=== PATIENT | male | born 1970 | race Caucasian/White ===

== ENCOUNTER 2024-10-07 12:43 | Day surgery (SDC) | payer OTHER, SELFPAY ==
[2024-10-07] VITALS (8 sets, daily range): BP systolic 109–131; BP diastolic 73–98; BMI 31.6
[2024-10-07 15:13] LABS: ACT-LR - POC 258 Seconds (116-155)
[2024-10-07 16:25] LABS: ACT-LR - POC 226 Seconds (116-155)
--- NOTE | 2024-10-07 16:45 | CM ---
Chart reviewed. Patient is independent of ADLS, lives with his in a [address], 1 [facility], 0 DME. Plan is for the patient to return home. CM to follow
--- NOTE | 2024-10-07 17:02 | ITS.CL.ANGIO ---
Remittance Clerk - Angioplasty
Angioplasty
Procedure Report:
LEFT HEART CATHETERIZATION
Date of Procedure: October 07, 2024
Procedures performed:
1: Physiologic lesion assessment of the left circumflex and left anterior descending arteries
2: Complex percutaneous coronary intervention of the proximal and mid LAD with 3 overlapping Miguel drug-eluting stents (3.5 x 32 mm, 3.5 x 8 mm, and 3.0 x 22mm) postdilated at high pressure with a 3.0 balloon distally and 3.5 mm noncompliant balloon
in the mid and proximal portions
3: Percutaneous coronary intervention left circumflex artery with placement of a 2.0 x 15 mm Eccles drug-eluting stent
Primary Care Provider: Dr. Ha Alexis
Primary Scrap Dealer: Myself
INDICATION: The patient is a 53-year-old man with a past medical history of coronary artery disease status post non-STEMI with RCA stenting at [facility] on September 23 who returns for planned staged PCI of the LAD and circumflex arteries.
ACCESS: The patient was prepped and draped in usual sterile fashion. A 6 Maltese sheath was placed in the right radial artery using the Seldinger over the wire technique.
HEMODYNAMIC FINDINGS (mmHg):
LV(s/d,EDP): Valve not crossed
Ao(s/d,m): 106/79, 93
ANGIOGRAPHIC FINDINGS:
Single-plane Left Ventriculography in PRINGLE Projection: Not done. Normal LVEF by echo performed on September 23 at [facility].
Coronary Angiography:
Please refer to the full diagnostic study performed on September 23, 2024 at [facility].
Physiologic lesion assessment of the circumflex: The patient was pretreated with aspirin and Plavix. Unfractionated heparin was given. A 6 Maltese XB 4.0 guiding catheter was used to engage the left main. A Omni pressure wire was advanced with the
transducer positioned in the second obtuse marginal branch beyond the smooth 50% mid circumflex stenosis. The iFR was measured at 0.91, 0.93, and 0.92 above the ischemic threshold. The wire was then pulled back and advanced into the more normal
proximal third obtuse marginal branch with the transducer distal to the 50% stenosis. The IFR was measured at 0.94 and 0.93 again above the ischemic threshold. I then chose to move to assessment of the LAD.
Percutaneous Coronary Intervention (PCI) of the LAD: The patient was pretreated with aspirin and Plavix. Unfractionated heparin was given and the ACT was confirmed to be over 250. A short BMW wire was advanced down the LAD without difficulty. The
mid LAD lesion was predilated with a 2.0 x 12 mm balloon. Next a 3.0 x 22 mm stent was deployed at the mid lesion. The stent was postdilated with a 3.0 mm noncompliant balloon at 16 hima distally and 18 hima proximally. I then chose to perform
physiologic lesion assessment of the LAD to see if the proximal disease was in fact flow-limiting after mid LAD stenting. The Omni wire was advanced down the LAD with the transducer positioned in the normal distal appearing vessel. The IFR was
markedly positive at 0.83, 0.83, and 0.82 consistent with flow-limiting proximal disease. I then moved to intervention using the BMW wire. A 3.5 x 32 mm Miguel drug-eluting stent was placed proximally in an attempt to overlap with the previously
placed stent. Unfortunately there was a small gap of about 2 mm noted on the superior aspect of the vessel. I elected to cover that With a 3.5 x 8 mm Eccles drug-eluting stent. The distal stents were postdilated with a 3.5 mm diameter noncompliant
balloon at 12 hima distally, 16 hima in the midportion and 18 hima at the proximal portion.
FINAL RESULT: 0% in-stent residual stenosis with an excellent angiographic result and RAGINI-3 flow in all vessels.
Percutaneous coronary intervention of the circumflex: I then turned my attention to the distal small caliber OM 4. My guide position was lost and I had trouble reengaging the left main so I switched to a 6 Maltese EBU 3.5 guiding catheter. The BMW
was advanced down the circumflex and across the distal OM 4 lesion. A 1.5 x 12 mm balloon was advanced to the lesion and predilation was performed. I was concerned that it was not profiling so I redilated the lesion with a 2.0 x 12 mm balloon.
Next, a 2.0 x 15 mm balloon was deployed at the lesion at 12 hima.
FINAL RESULT: 0% in-stent residual stenosis with an excellent angiographic result and RAGINI-3 flow in all vessels.
Fluoroscopy Time (min): 23
Radiation Dose (mGy): 1147
DAP (Gy.cm2): 96
Closure device: None. A TR band was applied for hemostasis at the right wrist.
Complications: None.
ASSESSMENT:
1: Successful complex multivessel stenting with overlapping drug-eluting stents placed in the LAD and a single small caliber stent placed in the circumflex/OM 4 as described above.
2: Physiologic lesion assessment of the mid circumflex lesion consistent with nonobstructive disease.
CONCLUSIONS and RECOMMENDATIONS:
1: Routine post drug-eluting stent medical therapy and monitoring. The patient needs dual antiplatelet therapy with aspirin and Plavix uninterrupted for a year and aspirin 81 mg daily indefinitely.
2: Medical therapy for coronary artery disease.
Anthony Arnold M.D.
--- NOTE | 2024-10-07 17:44 | PTCARENOTE ---
pt is sr on the monitor, hr in the 80s, vss. pt offers no complaints at this time. pt resting in bed comfortably. right radial is cdi. call black within reach.
[2024-10-07] MEDS: ZETIA 10 MG PO (21:43)
[2024-10-07] MEDS: LIPITOR 80 MG PO (21:43)
--- NOTE | 2024-10-07 23:35 | PTCARENOTE ---
Received pt @ change of shift. AAOx3, VSS. 5mL air remaining in external pressure device. Air removed per protocol. Band removed @ 2145. Site clean, dry, and intact. Soft to touch, no hematoma. Discussed plan of care with pt. Verbalizes
understanding. Call black within reach.
[2024-10-08 04:47] VITALS: BP 119/80
[2024-10-08 05:42] LABS: Hematocrit 45.9 % (39.0-52.0); Hemoglobin 15.2 g/dL (13.0-18.0); Mean Corp Hgb Conc. 33.1 g/dL (33.0-37.0); Mean Corpuscular Hgb 28.4 pg (27.0-31.0); Mean Corpuscular Volume 85.6 fL (80.0-94.0); Mean Platelet Volume 11.7 fL (7.4-10.4); Platelet Count 192 10^3/uL (130-400); Red Blood Cell Count 5.36 10^6/uL (4.70-6.10); Red Cell Dist. Width 11.7 % (11.5-14.5); White Blood Cell Count 8.2 10^3/uL (4.8-10.8)
[2024-10-08 06:03] LABS: Blood Urea Nitrogen 12 mg/dl (9-20); Calcium 9.3 mg/dl (8.4-10.2); Carbon Dioxide 22 mmol/L (22-30); Chloride 111 mmol/L (98-107); Estimated Creatinine Clearance > 125 ml/min; Glucose 94 mg/dl (70-99); HDL Cholesterol 36 mg/dl; LDL Cholesterol, Calculated 36 mg/dl; Potassium 4.2 mmol/L (3.5-5.1); Sodium 141 mmol/L (135-145); Total Cholesterol 96 mg/dl (50-199); Triglyceride 122 mg/dl (10-149); Very Low Density Lipoprotein 24 mg/dl (0-30); eGFR > 60.00
--- NOTE | 2024-10-08 07:14 | W.PN.CARDCBS ---
Addendum entered and electronically signed by Mendoza Gray DO 10/08/24 10:23:
I saw and examined the patient.
The Car Sweeper's note was reviewed and I agree with the note.
Comment:
Patient seen and examined this morning. No acute events overnight. Patient resting comfortably in chair with at bedside. No chest pain, shortness of breath, palpitations, weakness.
GEN: NAD. AAOx3
HEENT: EOMI, wearing glasses
LUNGS: RA. No audible wheeze
CV: SR on tele
EXT: Right radial with 2 puncture sites, distal site with slow ooze that was redressed with a small, dry, sterile pressure dressing. More proximal site where procedure performed without drainage, hematoma or ecchymosis.
NEURO: Gross non-focal
SKIN: No rash
Telemetry sinus rhythm rare PVC
A/P as below
Continue current medical therapy with aspirin, Plavix, BROOKLYNN inhibitor, atorvastatin
Activity limitations reviewed with patient
Patient stable for DC from CV standpoint
Original Note:
Today's Communication / Plan
-
Cont meds as is
D/C to home
Impression / Plan
-
PCP: Dr. Alexis
Card: Dr. Arnold
Impression:
CAD
NSTEMI and RCA PCI at [facility] 09/23/2024
s/p overlapping 3.5 mm, 3.5 mm and 3.0 mm [place]by RINA to the proximal to mid LAD and 2.0 mm [place]by RINA to the circumflex 10/07/2024
HTN
Hyperlipidemia
Plan:
-Patient had NSTEMI and RCA PCI [facility] 09/23/2024 and return to [facility] on 10/07/2024 for planned LAD and circumflex PCI
-Outpatient doses of aspirin and Plavix have been continued
-Outpatient dose of lisinopril 20 mg daily was continued
-Outpatient dose of atorvastatin 80 mg daily was continued.
-Right radial site inspected and there are 2 puncture sites, the distal puncture site had a small drop of blood and the more proximal puncture site was without drainage, ecchymosis or hematoma. Small dry sterile pressure dressing placed. Activity
and limb restrictions reviewed with patient
-Stable for discharge to home 10/08/2024
Progress Note - Home Health Care Respiratory Therapist
Subjective
Date of Service: October 08, 2024
He feels well, wants to go home
Objective
Labs:
10/08/24 05:05
10/08/24 05:05
Labs
Hgb 15.2 g/dL (13.0-18.0) 10/08/24 05:05
Hct 45.9 % (39.0-52.0) 10/08/24 05:05
Plt Count 192 10^3/uL (130-400) 10/08/24 05:05
Sodium 141 mmol/L (135-145) 10/08/24 05:05
Potassium 4.2 mmol/L (3.5-5.1) 10/08/24 05:05
BUN 12 mg/dl (9-20) 10/08/24 05:05
Creatinine 0.8 mg/dL (0.7-1.3) 10/08/24 05:05
Glucose 94 mg/dl (70-99) 10/08/24 05:05
Vital Signs and I&O:
Vital Signs
Temp Pulse Resp BP Pulse Ox
97.6 F 61 16 119/80 97
10/08/24 04:47 10/08/24 06:00 10/08/24 04:47 10/08/24 04:47 10/08/24 04:47
Vital Signs
Temp Pulse Resp BP Pulse Ox
97.6 F 61 16 119/80 97
10/08/24 04:47 10/08/24 06:00 10/08/24 04:47 10/08/24 04:47 10/08/24 04:47
Intake & Output
10/06/24 10/07/24 10/08/24 10/09/24
06:59 06:59 06:59 06:59
Intake Total 480 / 480
Balance 480 / 480
Physical Exam
Physical Exam
GEN: NAD. AAOx3
HEENT: EOMI, wearing glasses
LUNGS: RA. No audible wheeze
CV: SR on tele
EXT: Right radial with 2 puncture sites, distal site with slow ooze that was redressed with a small, dry, sterile pressure dressing. More proximal site where procedure performed without drainage, hematoma or ecchymosis.
NEURO: Gross non-focal
SKIN: No rash
[2024-10-08 07:18] VITALS: BP 129/83
--- NOTE | 2024-10-08 07:59 | W.DS.TRANS ---
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
-
Discharge Instructions:
Discharge Diagnosis/Procedures Angioplasty and stent x2 to Left Anterior
Descending artery
Diet Low Cholesterol
Activity Other activity
Driving Restrictions No driving for 24 hours
Bathing Restrictions OK to Shower
Other Services Cardiac Rehab
Instructions:
Stand-Alone Forms: DC Instructions- Cath/EP Lab
Changes to Home Medications: No
Discharge Medications:
DC Medications w/original date entered in [employer]
aspirin 81 mg chewable tablet 81 mg PO DAILY 10/07/24
atorvastatin 80 mg tablet 80 mg PO HS 10/07/24
clopidogrel 75 mg tablet (Plavix) 75 mg PO DAILY 10/07/24
ezetimibe 10 mg tablet 10 mg PO HS 10/07/24
lisinopril 20 mg tablet 20 mg PO DAILY 10/07/24
montelukast 10 mg tablet (Singulair) 10 mg PO DAILY 10/07/24
Home Medication Changes
Pending Results: No
[2024-10-08] MEDS: LOW STRENGTH ASPIRIN 81 MG PO (08:17)
[2024-10-08] MEDS: ZESTRIL 20 MG PO (08:17)
[2024-10-08] MEDS: SINGULAIR 10 MG PO (08:17)
[2024-10-08] MEDS: PLAVIX 75 MG PO (08:17)
--- NOTE | 2024-10-08 10:41 | PTCARENOTE ---
~[phone]: Handoff report received from nightshift RN. Patient AOx4, NSR on tele, SBP 120s, RA sating high 90s. +pulses. Patient denies pain/SOB at this time. R radial wrist site soft, dressing CDI. Patient independent in room. All needs met at
this time, call black within reach.
[id number]: D/c paperwork reviewed with patient. Patient in stable condition. IV and tele box removed.
[2024-10-10 08:01] LABS: ACT-LR - POC > 397 Seconds (116-155)
[2024-10-10 08:01] LABS: ACT-LR - POC > 397 Seconds (116-155)
== END 2024-10-08 10:35 | disposition home or self-care (01) ==
LOC: CATH 12:43
PROVIDERS: Nurse Practitioner; ATTENDING PHYSICIAN Internal Medicine Interventional Cardiology; FAMILY PHYSICIAN Family Medicine
DX: I25.10 Atherosclerotic heart disease of native coronary artery without angina pectoris (principal); I21.4 Non-ST elevation (NSTEMI) myocardial infarction; Z79.82 Long term (current) use of aspirin; Z79.02 Long term (current) use of antithrombotics/antiplatelets; Z79.899 Other long term (current) drug therapy; E78.5 Hyperlipidemia, unspecified; I10 Essential (primary) hypertension; I49.8 Other specified cardiac arrhythmias; Z95.5 Presence of coronary angioplasty implant and graft
CPT/HCPCS: 93799 ×2; 80048; 80061; 85027; 85347; 93005; C1725; C1769; C1874; C1894; C9600; Q9967